=== PATIENT | male | born 1950 | race African-American/Black ===

== ENCOUNTER 2018-06-13 05:14 | Inpatient (IN) | payer MEDICARE, OTHER ==
[~2018-06-13] VITALS: Ht 177.8 cm; Wt 72.7 kg
[2018-06-13] MEDS ORDERED: SODIUM CHLORIDE 0.9% 1,000 ML IV ONE (05:45)
[2018-06-13 06:09] LABS: HEMATOCRIT. 40.1 % (42.0-52.0); HEMOGLOBIN. 13.8 g/dL (14.0-18.0); MEAN CORPUSCULAR HEMOGLOBIN 32.4 pg (28.0-32.0); MEAN CORPUSCULAR VOLUME 93.8 fL (80.0-94.0); MEAN PLATELET VOLUME 8.3 fl (7.4-10.4); PLATELET 169 x1000/uL (130-400); RED BLOOD CELL COUNT 4.27 mill/uL (4.7-6.1)
[2018-06-13 06:16] LABS: CHLORIDE 98 mEq/L (98-107)
[2018-06-13 06:20] LABS: ETHANOL BLOOD < 10 mg/dL
[2018-06-13 07:12] LABS: ATYPICAL LYMPHOCYTES 1; PLATELET ESTIMATE NORMAL
[2018-06-13 07:50] LABS: CLARITY URINE CLOUDY (CLEAR); COLOR URINE YELLOW (YELLOW); KETONES URINE TRACE (NEGATIVE); LEUKOCYTE ESTERASE URINE NEGATIVE (NEGATIVE); NITRITE URINE NEGATIVE (NEGATIVE); OCCULT BLOOD URINE TRACE (NEGATIVE); PROTEIN URINE 1+ (NEGATIVE); UROBILINOGEN URINE 0.2 E.U./dL (0.2-1.0)
[2018-06-13] MEDS ORDERED: PIPERACILLIN/TAZ 3.375G PREMIX 50 ML IV ONE (08:00)
[2018-06-13] MEDS ORDERED: VANCOMYCIN 1 G PREMIX 200 ML IV ONE (08:00)
[2018-06-13 08:27] LABS: *AMPHETAMINES SCREEN URINE NEGATIVE (NEGATIVE)
[2018-06-13 08:28] LABS: *BARBITURATES SCREEN URINE NEGATIVE (NEGATIVE); *BENZODIAZEPINES SCREEN URINE NEGATIVE (NEGATIVE); *COCAINE SCREEN URINE PRESUMTIVE POSITIVE (NEGATIVE); METHADONE URINE SCREEN NEGATIVE (NEGATIVE); PHENCYCLIDINE URINE SCREEN PRESUMTIVE POSITIVE (NEGATIVE)
[2018-06-13 08:29] LABS: CANNABINOID URINE SCREEN NEGATIVE (NEGATIVE); OPIATES URINE SCREEN NEGATIVE (NEGATIVE)
[2018-06-13 10:38] VITALS: BP 104/65
[2018-06-13] MEDS ORDERED: ONDANSETRON HCL 4MG/2ML INJ IV PRN (11:15)
[2018-06-13] MEDS ORDERED: DEXTROSE 50% WATER 50ML SYRINGE IV PRN ×2 (11:15)
[2018-06-13 11:30] LABS: CREATINE KINASE 735 IU/L (39-308)
[2018-06-13 12:00] VITALS: BP 112/72
[2018-06-13 12:26] LABS: PHOSPHORUS 4.8 mg/dL (2.5-4.9)
[2018-06-13] MEDS: BLOOD SUGAR DIAGNOSTIC STRIP TEST SCH ×3 (12:30→21:30)
[2018-06-13] MEDS: INSULIN LISPRO 100 UNITS/ML SUBCUT SCH ×3 (13:00→21:37)
[2018-06-13 13:45] VITALS: BP 104/51
[2018-06-13] MEDS: SODIUM CHLORIDE 0.9% 1,000 ML IV SCH ×2 (13:54→22:27)
[2018-06-13 16:00] VITALS: BP 127/61
[2018-06-13 18:00] VITALS: BP 112/62
[2018-06-13 20:00] VITALS: BP 98/68
[2018-06-13] MEDS: INSULIN GLARGINE UD 100 UNITS/ML SYR SUBCUT SCH (22:00)
[2018-06-14] VITALS (13 sets, daily range): BP systolic 113–136; BP diastolic 51–73
[2018-06-14] MEDS: SODIUM CHLORIDE 0.9% 1,000 ML IV SCH ×2 (05:09→15:47)
[2018-06-14 07:23] LABS: BASOPHILS % 0.4 % (0.0-2.0); EOSINOPHILS % 0.2 % (0.0-5.0); LYMPHOCYTES % 43.4 % (20.0-50.0); MEAN CORPUSCULAR HEMOGLOBIN 33.1 pg (28.0-32.0); MEAN CORPUSCULAR VOLUME 93.7 fL (80.0-94.0); MEAN PLATELET VOLUME 8.9 fl (7.4-10.4); MONOCYTES % 12.7 % (2.0-8.0); NEUTROPHILS % 43.3 % (40.0-76.0); PLATELET 164 x1000/uL (130-400); RED BLOOD CELL COUNT 3.95 mill/uL (4.7-6.1); RED CELL DISTRIBUTION WIDTH 12.7 % (11.6-14.6)
[2018-06-14 07:31] LABS: CHLORIDE 106 mEq/L (98-107)
[2018-06-14 07:52] LABS: LDL CHOLESTEROL 96 mg/dL (5-100)
[2018-06-14 07:54] LABS: CREATINE KINASE 580 IU/L (39-308); HDL CHOLESTEROL 44 mg/dL (40-59)
[2018-06-14 07:55] LABS: T4 FREE 1.18 ng/dL (0.76-1.46)
[2018-06-14] MEDS: BLOOD SUGAR DIAGNOSTIC STRIP TEST SCH ×4 (07:56→20:47)
[2018-06-14] MEDS: INSULIN LISPRO 100 UNITS/ML SUBCUT SCH ×4 (08:44→20:46)
[2018-06-14] MEDS ORDERED: PIOG30TA70 MT (21:20)
[2018-06-14] MEDS ORDERED: TAMS0.4C31 PO (21:20)
[2018-06-14] MEDS ORDERED: SAXA1TBM3 MT (21:26)
[2018-06-14] MEDS ORDERED: GABA-531 PO (21:26)
[2018-06-14] MEDS ORDERED: LISI2.5T47 MT (21:26)
[2018-06-14] MEDS ORDERED: METF-815 MT (21:26)
[2018-06-14] MEDS ORDERED: SIMV40TA5 MT (21:26)
[2018-06-14] MEDS ORDERED: ASPI-1159 PO (21:28)
[2018-06-15] VITALS (8 sets, daily range): BP systolic 94–125; BP diastolic 57–76
[2018-06-15] MEDS: INSULIN GLARGINE UD 100 UNITS/ML SYR SUBCUT SCH (02:19)
[2018-06-15] MEDS: BLOOD SUGAR DIAGNOSTIC STRIP TEST SCH ×2 (05:08→12:15)
[2018-06-15 06:08] LABS: HEMATOCRIT. 37.3 % (42.0-52.0); HEMOGLOBIN. 13.1 g/dL (14.0-18.0); MEAN CORPUSCULAR HEMOGLOBIN 32.8 pg (28.0-32.0); MEAN CORPUSCULAR VOLUME 93.6 fL (80.0-94.0); MEAN PLATELET VOLUME 8.6 fl (7.4-10.4); PLATELET 177 x1000/uL (130-400); RED BLOOD CELL COUNT 3.99 mill/uL (4.7-6.1); RED CELL DISTRIBUTION WIDTH 13.1 % (11.6-14.6)
[2018-06-15 06:20] LABS: CHLORIDE 107 mEq/L (98-107)
[2018-06-15] MEDS ORDERED: IPRATROPIUM/ALBUTEROL 0.5-3(2.5)MG/3ML NEB HHN PRN (06:45)
[2018-06-15] MEDS ORDERED: BENZONATATE 100MG CAPSULE PO PRN (06:45)
[2018-06-15] MEDS: INSULIN LISPRO 100 UNITS/ML SUBCUT SCH ×2 (09:23→12:16)
[2018-06-15 10:49] LABS: PLATELET ESTIMATE NORMAL
[2018-06-15 13:06] LABS: ANTI-NUCLEAR ANTIBODIES DIRECT Negative (Negative)
[2018-06-16 06:12] LABS: COMPLEMENT C3 126 mg/dL (82-167)
== END 2018-06-15 17:40 | disposition home or self-care (01) | DRG 314 ==
LOC: ER 05:14 → 5EST 07:55 → EDBEDREQ 07:56 → ENRESERV 09:47
PROVIDERS: ADMIT Family Medicine Adult Medicine; ATTEND Family Medicine Adult Medicine
DX: I95.9 Hypotension, unspecified (principal); N17.0 Acute kidney failure with tubular necrosis; E87.1 Hypo-osmolality and hyponatremia; N18.9 Chronic kidney disease, unspecified; E86.0 Dehydration; E11.22 Type 2 diabetes mellitus with diabetic chronic kidney disease; I12.9 Hypertensive chronic kidney disease with stage 1 through stage 4 chronic kidney disease, or unspecified chronic kidney disease; E11.65 Type 2 diabetes mellitus with hyperglycemia; E86.1 Hypovolemia; F10.10 Alcohol abuse, uncomplicated; F14.10 Cocaine abuse, uncomplicated; F16.10 Hallucinogen abuse, uncomplicated; N40.0 Benign prostatic hyperplasia without lower urinary tract symptoms; I44.7 Left bundle-branch block, unspecified; G90.8 Other disorders of autonomic nervous system
CPT/HCPCS: 36415; 70544; 70553; 71045; 76770; 80048; 80061; 80305; 80320; 82550; 82962; 83036; 83605; 83735; 84100; 84145; 84439; 84443; 84481; 84484; 86038; 86160; 86850; 86900; 93005; 93306; 93880; 93970; 96365; 97162; 97165; 99285; J1815; J2543; J3370; J7030; G0480